=== PATIENT | female | born 1970 | race Caucasian/White ===

== ENCOUNTER 2020-10-18 09:10 | Observation (INO) ==
[2020-10-18] MEDS ORDERED: Ondansetron 4 MG/2 ML VIAL IVP PRN ×3 (13:04→17:46)
[2020-10-18] MEDS ORDERED: 0.9 % Sodium Chloride 1,000 ML IVC SCH (13:15)
[2020-10-18] MEDS ORDERED: *HR* FentaNYL (PF) 100 MCG/2 ML VIAL ONE ×2 (14:35→16:32)
[2020-10-18] MEDS ORDERED: *HR* Midazolam HCl 2 MG/2 ML VIAL ONE (14:35)
[2020-10-18] MEDS ORDERED: *HR* Succinylcholine 200 MG/10 ML VIAL IVP ONE (14:36)
[2020-10-18] MEDS ORDERED: Lidocaine -MPF 2% 2 ML VIAL ONE (14:36)
[2020-10-18] MEDS ORDERED: *HR* Propofol 200 MG/20 ML VIAL IVP ONE (14:36)
[2020-10-18] MEDS ORDERED: *HR* Rocuronium Bromide 50 MG/5 ML VIAL ONE (14:36)
[2020-10-18] MEDS ORDERED: Piperacillin/Tazobactam 3.375 GM in 0.9 % Sodium Chloride Mini Bag 100 ML IVPB SCH (16:00)
[2020-10-18] MEDS ORDERED: Ondansetron 4 MG/2 ML VIAL ONE (16:03)
[2020-10-18] MEDS ORDERED: Neostigmine Methylsulfate 3 MG/3 ML SYRINGE ONE (16:18)
[2020-10-18] MEDS ORDERED: *HR* HYDROmorphone PF 0.5 MG/0.5 ML SYRINGE IVP PRN (16:58)
[2020-10-18] MEDS ORDERED: *HR* HYDROcodone/Acet 5/325 mg TABLET PO PRN (16:58)
[2020-10-18] MEDS ORDERED: *HR* Labetalol 20 MG/4 ML SYRINGE IVP PRN (16:58)
[2020-10-18] MEDS: Ketorolac 15 MG/ML VIAL IVP SCH ×2 (17:58→23:36)
[2020-10-18] MEDS: 0.9 % Sodium Chloride 1,000 ML IVC SCH ×2 (18:03→23:38)
[2020-10-18] MEDS: Acetaminophen IV 1,000 MG/100 ML BAG IVPB SCH ×2 (19:59→23:35)
[2020-10-18] MEDS: Pantoprazole 40 MG VIAL IVP SCH (20:00)
[2020-10-18] MEDS: Piperacillin/Tazobactam 3.375 GM in 0.9 % Sodium Chloride Mini Bag 100 ML IVPB SCH (23:37)
[2020-10-19] MEDS: Acetaminophen IV 1,000 MG/100 ML BAG IVPB SCH (05:26)
[2020-10-19] MEDS: Ketorolac 15 MG/ML VIAL IVP SCH (05:26)
[2020-10-19 06:51] VITALS: BP 95/61
[2020-10-19] MEDS: Piperacillin/Tazobactam 3.375 GM in 0.9 % Sodium Chloride Mini Bag 100 ML IVPB SCH (08:46)
[2020-10-19] MEDS: Pantoprazole 40 MG VIAL IVP SCH (08:48)
== END 2020-10-19 10:01 | disposition home or self-care (01) ==
LOC: 3ANU
PROVIDERS: ADMIT Surgery; ATTEND Surgery

== ENCOUNTER 2020-10-21 21:39 | Observation (INO) ==
[2020-10-22] MEDS: Lactobacillus 1 EACH CAP.SPRINK PO SCH ×2 (00:40→08:15)
[2020-10-22] MEDS: 0.9 % Sodium Chloride 1,000 ML IVC SCH ×2 (00:40→17:17)
[2020-10-22] MEDS: Piperacillin/Tazobactam 3.375 GM in 0.9 % Sodium Chloride Mini Bag 100 ML IVPB SCH ×3 (02:49→17:17)
[2020-10-22 04:57] LABS: Basophils % 0.3 %; Eosinophils # 0.4 K/mcL (0.0-0.6); Eosinophils % 3.3 %; Hematocrit 37.3 % (35.3-44.9); Hemoglobin 12.3 g/dL (11.5-15.4); Immature Granulocytes % 0.5 % (0-4); Lymphocytes # 1.2 K/mcL (0.6-4.6); Lymphocytes % 10.6 %; Mean Corpuscular Hemoglobin 29.9 pg (28.0-33.3); Mean Corpuscular Volume 90.8 fL (83.0-100.0); Mean Platelet Volume 10.3 fL (9.4-12.4); Monocytes % 8.7 %; Neutrophils # 8.9 K/mcL (1.6-8.9); Platelet Count 245 K/mcL (140-400); Red Blood Count 4.11 M/mcL (3.82-4.97); Red Cell Distribution Width 12.3 % (11.5-14.5); Segmented Neutrophils % 76.6 %; White Blood Count 11.7 K/mcL (4.3-11.1)
[2020-10-22 05:12] LABS: BUN/Creatinine Ratio 14 (6-26); Blood Urea Nitrogen 9 mg/dL (6-20); Calcium 8.5 mg/dL (8.6-10.3); Carbon Dioxide 22 mEq/L (23-29); Chloride 107 mEq/L (98-107); Glucose 93 mg/dL (70-105); Osmolality,Calculated 280 (280-300); Potassium 3.7 mEq/L (3.5-5.1); Sodium 136 mEq/L (136-145); eGFR For African Americans > 60 (> 60); eGFR For Non-African Americans > 60 (> 60)
[2020-10-22] MEDS ORDERED: Ibuprofen 600 MG TABLET PO PRN (07:18)
[2020-10-22] MEDS ORDERED: *HR* HYDROcodone/Acet 5/325 mg TABLET PO PRN (07:18)
[2020-10-22] MEDS: *HR* Heparin 5,000 UNIT/ML VIAL SQ SCH ×2 (08:14→17:17)
[2020-10-22] MEDS: Pantoprazole 40 MG VIAL IVP SCH (08:15)
[2020-10-22] MEDS: estradioL 1 MG TABLET PO SCH (08:15)
[2020-10-22] MEDS: Acetaminophen IV 1,000 MG/100 ML BAG IVPB SCH ×2 (13:15→17:17)
[2020-10-22] MEDS: Bisacodyl 10 MG RECTAL SUPPOSITORY RC SCH ×2 (13:15→21:12)
[2020-10-22] MEDS: Ondansetron 4 MG/2 ML VIAL IVP PRN (22:01)
[2020-10-23] MEDS: Acetaminophen IV 1,000 MG/100 ML BAG IVPB SCH ×5 (00:12→23:49)
[2020-10-23] MEDS: Piperacillin/Tazobactam 3.375 GM in 0.9 % Sodium Chloride Mini Bag 100 ML IVPB SCH ×3 (03:37→17:40)
[2020-10-23] MEDS: Ondansetron 4 MG/2 ML VIAL IVP PRN ×3 (04:10→20:41)
[2020-10-23 06:55] LABS: Basophils # 0.1 K/mcL (0.0-0.2); Basophils % 0.7 %; Eosinophils # 0.4 K/mcL (0.0-0.6); Eosinophils % 3.7 %; Hematocrit 36.7 % (35.3-44.9); Hemoglobin 12.2 g/dL (11.5-15.4); Immature Granulocytes % 0.7 % (0-4); Lymphocytes # 1.5 K/mcL (0.6-4.6); Lymphocytes % 13.5 %; Mean Corpuscular HGB Conc 33.2 g/dL (31.6-35.5); Mean Corpuscular Hemoglobin 29.9 pg (28.0-33.3); Mean Platelet Volume 10.2 fL (9.4-12.4); Monocytes % 9.5 %; Neutrophils # 7.9 K/mcL (1.6-8.9); Platelet Count 279 K/mcL (140-400); Red Blood Count 4.08 M/mcL (3.82-4.97); Red Cell Distribution Width 11.9 % (11.5-14.5); Segmented Neutrophils % 71.9 %
[2020-10-23 07:19] LABS: BUN/Creatinine Ratio 17 (6-26); Blood Urea Nitrogen 11 mg/dL (6-20); Calcium 8.4 mg/dL (8.6-10.3); Carbon Dioxide 19 mEq/L (23-29); Chloride 105 mEq/L (98-107); Glucose 73 mg/dL (70-105); Magnesium 1.8 mg/dL (1.6-2.6); Osmolality,Calculated 278 (280-300); Phosphorous 3.5 mg/dL (2.7-4.5); Potassium 3.8 mEq/L (3.5-5.1); Sodium 135 mEq/L (136-145); eGFR For African Americans > 60 (> 60); eGFR For Non-African Americans > 60 (> 60)
[2020-10-23] MEDS: 0.9 % Sodium Chloride 1,000 ML IVC SCH ×2 (07:23→23:48)
[2020-10-23] MEDS: Lactobacillus 1 EACH CAP.SPRINK PO SCH (09:39)
[2020-10-23] MEDS: *HR* Heparin 5,000 UNIT/ML VIAL SQ SCH ×2 (09:39→17:40)
[2020-10-23] MEDS: estradioL 1 MG TABLET PO SCH (09:39)
[2020-10-23] MEDS: Pantoprazole 40 MG VIAL IVP SCH (09:40)
[2020-10-23] MEDS: Bisacodyl 10 MG RECTAL SUPPOSITORY RC SCH ×2 (09:40→20:42)
[2020-10-24] MEDS: Piperacillin/Tazobactam 3.375 GM in 0.9 % Sodium Chloride Mini Bag 100 ML IVPB SCH ×2 (02:46→10:38)
[2020-10-24] MEDS: 0.9 % Sodium Chloride 1,000 ML IVC SCH (05:51)
[2020-10-24] MEDS: Acetaminophen IV 1,000 MG/100 ML BAG IVPB SCH (05:54)
[2020-10-24] MEDS: *HR* Heparin 5,000 UNIT/ML VIAL SQ SCH (05:54)
[2020-10-24 07:12] VITALS: BP 111/73
[2020-10-24] MEDS: Pantoprazole 40 MG VIAL IVP SCH (08:02)
[2020-10-24] MEDS: Lactobacillus 1 EACH CAP.SPRINK PO SCH (08:02)
[2020-10-24] MEDS: estradioL 1 MG TABLET PO SCH (08:02)
[2020-10-24] MEDS: Bisacodyl 10 MG RECTAL SUPPOSITORY RC SCH (08:03)
[2020-10-24 10:24] LABS: Basophils # 0.1 K/mcL (0.0-0.2); Basophils % 0.7 %; Eosinophils # 0.4 K/mcL (0.0-0.6); Eosinophils % 3.7 %; Hematocrit 37.8 % (35.3-44.9); Hemoglobin 13.1 g/dL (11.5-15.4); Immature Granulocytes % 0.7 % (0-4); Lymphocytes # 1.1 K/mcL (0.6-4.6); Lymphocytes % 10.8 %; Mean Corpuscular HGB Conc 34.7 g/dL (31.6-35.5); Mean Corpuscular Hemoglobin 30.8 pg (28.0-33.3); Mean Corpuscular Volume 88.7 fL (83.0-100.0); Mean Platelet Volume 9.6 fL (9.4-12.4); Monocytes # 0.8 K/mcL (0.0-1.3); Monocytes % 7.9 %; Neutrophils # 7.4 K/mcL (1.6-8.9); Platelet Count 313 K/mcL (140-400); Red Blood Count 4.26 M/mcL (3.82-4.97); Red Cell Distribution Width 11.8 % (11.5-14.5); Segmented Neutrophils % 76.2 %; White Blood Count 9.7 K/mcL (4.3-11.1)
== END 2020-10-24 11:53 | disposition home or self-care (01) ==
LOC: 3ANU
PROVIDERS: ADMIT Surgery; ATTEND Surgery